=== PATIENT | male | born 1940 | race Caucasian/White ===

== ENCOUNTER 2019-11-12 08:12 | Outpatient (CLI) | payer MEDICARE, OTHER, SELFPAY ==
--- NOTE | 2019-11-12 08:21 | XR_ITS ---
WS: [id number] XR ribs RT 2V* [id number] REASON FOR EXAM: RIB PAIN,RIGHTSIDED FINDINGS: A nondisplaced fractures noted through the fifth rib on the right side. The remaining rib cage appear to be essentially normal. There was no pneumothorax or pleural reaction. XR/XR ribs RT 2V* [id number] IMPRESSION: Fracture of the fifth rib through its angle nondisplaced
== END 2019-11-12 08:13 | disposition home or self-care (01) ==
PROVIDERS: Family Provider Family Medicine; PCP Family Medicine; Visit Provider Family Medicine
DX: R07.81 Pleurodynia (principal); S22.31XA Fracture of one rib, right side, initial encounter for closed fracture; X58.XXXA Exposure to other specified factors, initial encounter
CPT/HCPCS: 71100

== ENCOUNTER 2020-02-05 03:47 | Inpatient (IN) | payer MEDICARE, OTHER, SELFPAY ==
[2020-02-05] VITALS (14 sets, daily range): BP systolic 113–174; BP diastolic 63–85; PULSE 56–89; RESP 16–20; TEMP 36.4–37.2; O2SAT 93–98; BMI 19.8
--- NOTE | 2020-02-05 04:11 | XRR_ITS ---
PROCEDURE INFORMATION: Exam: XR Right Femur Exam date and time: 02/05/2020 4:50 AM Age: 79 years old Clinical indication: Injury or trauma; Fall; Initial encounter; Blunt trauma; Hip; Right TECHNIQUE: Imaging protocol: XR Right femur. Views: 2 views. COMPARISON: No relevant prior studies available. FINDINGS: Bones/joints: The femur is intact. Questionable irregularity seen in the lateral condyle of the tibia. Soft tissues: Unremarkable. XR/XR femur RT min 2V* [id number] IMPRESSION: No fracture is seen in the femur. Right knee x-rays are suggested to evaluate the lateral condyle of the tibia.
--- NOTE | 2020-02-05 04:11 | CTR_ITS ---
PROCEDURE INFORMATION: Exam: CT Cervical Spine Without Contrast Exam date and time: 02/05/2020 5:00 AM Age: 79 years old Clinical indication: Injury or trauma; Fall; Initial encounter; Abrasion TECHNIQUE: Imaging protocol: Computed tomography images of the cervical spine without contrast. Radiation optimization: All CT scans at this facility use at least one of these dose optimization techniques: automated exposure control; mA and/or kV adjustment per patient size (includes targeted exams where dose is matched to clinical indication); or iterative reconstruction. COMPARISON: No relevant prior studies available. RADIATION DOSE METRICS: Total DLP (mGy-cm): 549.84 FINDINGS: Vertebrae: No acute fracture. Normal alignment. The disc heights are reduced at C5-C6 and C6-C7 with osteophytes and narrowing of the remove the neural foramina. Soft tissues: Unremarkable. Lungs: Lung apices are normal. CT/CT cervical spin wo con* [id number] IMPRESSION: No acute findings. Negative for fracture or subluxation. Radiation Dose CTDIVOL = (mGy): DLP = 549.84 (mGy-cm)
--- NOTE | 2020-02-05 04:11 | XRR_ITS ---
PROCEDURE INFORMATION: Exam: XR Chest, 1 View Exam date and time: 02/05/2020 4:38 AM Age: 79 years old Clinical indication: Injury or trauma; Fall; Initial encounter; Abrasion TECHNIQUE: Imaging protocol: XR of the chest Views: 1 view. COMPARISON: CR XR ribs RT 2V* [id number] 11/12/2019 8:25 AM FINDINGS: Lungs: A new heterogenous opacity seen in the lateral right upper lobe with adjoining chest wall soft tissue swelling. Pleural space: Unremarkable. No pleural effusion. No pneumothorax. Heart/Mediastinum: Unremarkable. No cardiomegaly. Bones/joints: Unremarkable. XR/XR chest 1V portable [id number] IMPRESSION: Lung contusion in the right upper lobe is suspected along with hematoma in the chest wall. Few infiltrates are seen in the left base. No rib fracture is identified in this single view. Negative for pneumothorax. Follow-up is suggested.
--- NOTE | 2020-02-05 04:11 | CTR_ITS ---
PROCEDURE INFORMATION: Exam: CT Head Without Contrast Exam date and time: 02/05/2020 5:00 AM Age: 79 years old Clinical indication: Injury or trauma; Fall; Initial encounter; Abrasion; Forehead TECHNIQUE: Imaging protocol: Computed tomography of the head without contrast. Radiation optimization: All CT scans at this facility use at least one of these dose optimization techniques: automated exposure control; mA and/or kV adjustment per patient size (includes targeted exams where dose is matched to clinical indication); or iterative reconstruction. COMPARISON: CT head wo con* [id number] 10/06/2015 11:58 PM RADIATION DOSE METRICS: Total DLP (mGy-cm): 1369.05 FINDINGS: Brain: Normal. No hemorrhage. Decreased periventricular white matter attenuation is consistent with microvascular ischemic changes. No mass effect. Ventricles: Prominent ventricles and cisterns are seen consistent with atrophy. Bones/joints: Unremarkable. No acute fracture. Sinuses: Visualized sinuses are unremarkable. No fluid levels. Mastoid air cells: Visualized mastoid air cells are well aerated. Soft tissues: Unremarkable. CT/CT head wo con* [id number] IMPRESSION: No acute intracranial abnormality. Radiation Dose CTDIVOL = (mGy): DLP = 1369.05 (mGy-cm)
--- NOTE | 2020-02-05 04:12 | ECG_ITS ---
[facility] Test Date: 2020-02-05 Pat Name: Jaya Angel Department: Room: Gender: Male Cook Starch: : 1940 Requested By: Carlos Doherty Order Number: [id number] Neo MD: Mendy Ely M.D. Measurements Intervals [place] Rate: 67 P: 57 [place]: 153 QRS: 15 QRSD: 93 T: 18 QT: 385 QTc: 409 Interpretive Statements SINUS RHYTHM WITH OCCASIONAL VENTRICULAR PREMATURE COMPLEXES WITH OCCASIONAL SUPRAVENTRICULAR PREMATURE COMPLEXES No previous ECG available for comparison Electronically Signed On 02-05-2020 20:51:23 CDT by Mendy Ely M.D. [id number]
--- NOTE | 2020-02-05 04:34 | W.ED.FALL ---
HPI - Fall General: Chief Complaint: Fall Stated Complaint: FALL Time Seen by Provider: 02/05/20 03:53 History of Present Illness: HPI Narrative: 79-year-old male with a history of dementia. He was found around 2 AM at the base of the stairs in the garage. There is about a 6 stairs landing without a rail. He has an abrasion to his face, and is complaining of right hip pain. He cannot bear weight on that hip. EMS was called. Patient does not recall how he fell, but thinks he may have fallen around midnight. MD complaint: fall Onset (ago): hour(s) Fall from: from height (distance) and down stairs (#) Fall witnessed: no Place fall occurred: home Loss of consciousness: Unsure Prolonged down time: unclear Symptoms prior to fall: none Location of injury: head and face Location of injury - extremities: Right: thigh Associated symptoms-after fall: Denies abdominal pain, chest pain, headache(s), hematuria, neck pain or short of breath Review of Systems Const: Denies: fever(s) or chills Eyes: Denies: change in vision or blurry vision ENMT: Denies: swelling of lips/tongue, dental pain, change in hearing, epistaxis, post nasal drip or sinus pain Card: Denies: chest pain Resp: Denies: dyspnea, productive cough, non-productive cough or wheezing GI: Denies: abdominal pain : Denies: difficulty urinating or hematuria Musc: Denies: neck pain or back pain Neuro: Denies: headache(s) Psych: Denies: anxiety Physical Exam Const: GENERAL APPEARANCE: well developed ORIENTATION/CONSCIOUSNESS: Yes oriented to person and Yes oriented to place; not oriented to time HENMT: COMMON NORMALS: normocephalic, external ears normal and Normal external nose present HEAD & SCALP: normocephalic FACE & SINUS: normal facial exam NOSE: Normal external nose present and No nasal discharge present EXTERNAL EAR: Yes external ears normal THROAT: posterior oropharynx normal; no peritonsillar mass Eye: COMMON NORMALS: Equal, round and reactive pupils present, EOMs intact bilaterally and conjunctivae normal EYELID: eyelids normal CONJUNCTIVA: Yes conjunctivae normal PUPIL: Yes Equal, round and reactive pupils present Neck/C-Spine: COMMON NORMALS: full ROM GENERAL: No tracheal deviation CERVICAL SPINE: Yes normal cervical lordosis and No Cervical spine tenderness Chest: COMMONS NORMALS: normal inspection of the chest CHEST: No tenderness Resp: COMMON NORMALS: clear to auscultation bilaterally EFFORT & INSPECTION: No tachypneic, No respiratory distress, No retractions, No uses accessory muscles and No tracheal deviation AUSCULTATION: clear to auscultation bilaterally, no rhonchi, no wheezes and lung sounds not diminished Cardio: COMMON NORMALS: regular rate and regular rhythm RATE: regular rate RHYTHM: regular rhythm HEART SOUNDS: no murmurs PERIPHERAL PULSES: radial pulses present GI: INSPECTION: No abdominal distension AUSCULTATION: No Hyperactive bowel sounds present and No Hypoactive bowel sounds present PALPATION: No Guarding due to palpation present (GI) and No Rigid due to palpation PERCUSSION: no dullness to percussion and no tympanic to percussion Extremity: NARRATIVE EXTREMITY EXAM: Examination of the right lower extremity reveals no deformity. There is tenderness over the anterior right hip. There is pain with flexion. There is pain with internal rotation. Neuro: SENSORIUM/ORIENTATION: Yes oriented to person, Yes oriented to place and No oriented to time Psych: COMMON NORMALS: mental status grossly normal Skin: COMMON NORMALS: no rashes or lesions noted GENERAL SKIN EXAM: no rashes or lesions noted Course Consultations: Consultation #1: schuyler Time: 06:12 Consultation #2: tsering Time: 06:23 Vital Signs: Vital signs: Vital Signs Temperature 97.6 F 02/05/20 03:49 Pulse Rate 77 02/05/20 03:49 Respiratory Rate 16 02/05/20 04:47 Blood Pressure 142/78 02/05/20 03:49 Pulse Oximetry 94 02/05/20 03:49 MDM - Fall Lab Data: Labs: Lab Results 02/05/20 02/05/20 02/05/20 Range/Units 04:16 04:16 04:16 WBC 12.8 H (4.0-10.0) 10^3/ uL RBC 4.56 (4.1-5.3) 10^6/u L Hgb 13.8 (11.7-16.6) g/dL Hct 46.3 (42.0-52.0) % MCV 101.5 H (80-94) fL MCH 30.3 (28.0-34.0) pg MCHC 29.8 L (30.0-36.0) g/dL RDW 14.6 (12.1-15.1) % Plt Count 224 (130-400) 10^3/c mm MPV 9.5 (7.4-10.4) fL Neut % (Auto) 89.7 % Lymph % (Auto) 2.3 % Beadle % (Auto) 6.6 % Eos % (Auto) 0.0 % Baso % (Auto) 0.4 % Neut # (Auto) 11.46 H (1.8-7.7) 10^3/u L Lymph # (Auto) 0.3 L (0.8-4.8) 10^3/u L Beadle # (Auto) 0.8 (0.2-0.9) 10^3/u L Eos # (Auto) 0.0 (0.0-0.8) 10^3/u L Baso # (Auto) 0.1 (0.0-0.1) 10^3/u L Nucleated RBC % (a uto) 0 % Nucleated RBCs # 0.0 /100WBC Sodium 135 L (136-145) mmol/L Potassium 4.0 (3.5-5.1) mmol/L Chloride 99 (98-107) mmol/L Carbon Dioxide 25 (22-29) mmol/L Anion Gap 15.0 (5-19) BUN 19 (8-23) mg/dL Creatinine 0.8 (0.7-1.2) mg/dL GFR Calculation Not Reportable Glucose 109 (65-115) mg/dL Calculated Osmolal ity 277 L (285-295) mOsm/k g Calcium 9.2 (8.5-10.5) mg/dL Total Bilirubin 1.4 H (0.15-1.2) mg/dL AST 62 H (0-40) U/L ALT 49 H (0-41) U/L Alkaline Phosphata se 247 H (40-130) IU/L Creatine Kinase 39 (39-308) U/L Troponin T Baselin e 34 H (0-15) ng/L Total Protein 6.1 L (6.6-8.7) g/dL Albumin 2.8 L (3.5-5.2) g/dL Globulin 3.3 (1.3-4.6) g/dL Coding Level of Care Code ED Word Processor Operator for Chg Fwd Exam Comprehensive
[2020-02-05] MEDS: sodium chloride 0.9% 1,000 ML 999 ML IV (04:35)
[2020-02-05 04:37] LABS: Basophils # 0.1 10^3/uL (0.0-0.1); Basophils % 0.4 %; Hematocrit 46.3 % (42.0-52.0); Hemoglobin 13.8 g/dL (11.7-16.6); Lymphocytes # 0.3 10^3/uL (0.8-4.8); Lymphocytes % 2.3 %; Mean Corpuscular HGB Conc 29.8 g/dL (30.0-36.0); Mean Corpuscular Hemoglobin 30.3 pg (28.0-34.0); Mean Corpuscular Volume 101.5 fL (80-94); Mean Platelet Volume 9.5 fL (7.4-10.4); Monocytes # 0.8 10^3/uL (0.2-0.9); Monocytes % 6.6 %; Neutrophils # 11.46 10^3/uL (1.8-7.7); Neutrophils % 89.7 %; Nucleated Red Blood Cells % 0 %; Platelet Count 224 10^3/cmm (130-400); Red Blood Count 4.56 10^6/uL (4.1-5.3); Red Cell Distribution Width 14.6 % (12.1-15.1); White Blood Count 12.8 10^3/uL (4.0-10.0)
[2020-02-05] MEDS: fentaNYL 50 mcg/mL INJ 2mL 75 MCG IVP (04:47)
--- NOTE | 2020-02-05 04:52 | CTR_ITS ---
PROCEDURE INFORMATION: Exam: CT Pelvis Without Contrast; Skeletal Exam date and time: 02/05/2020 5:00 AM Age: 79 years old Clinical indication: Injury or trauma; Fall; Initial encounter; Blunt trauma (contusions or hematomas); Right; Hip TECHNIQUE: Imaging protocol: Computed tomography images of the pelvis without contrast. Exam focused on the skeletal structures. Radiation optimization: All CT scans at this facility use at least one of these dose optimization techniques: automated exposure control; mA and/or kV adjustment per patient size (includes targeted exams where dose is matched to clinical indication); or iterative reconstruction. COMPARISON: No relevant prior studies available. RADIATION DOSE METRICS: Total DLP (mGy-cm): 272.45 FINDINGS: Bones/joints: An undisplaced a comminuted fracture of the right acetabulum is present. No dislocation. Soft tissues: Prostatomegaly is seen. Noninflamed diverticuli are present in the sigmoid colon. Mild ectasia of the abdominal aorta is seen measuring up to 2.5 cm. Questionable tiny amount of fluid is seen in the right paracolic gutter. CT/CT pelvis [facility] [id number] IMPRESSION: 1. Fracture of the right acetabulum is present. 2. Additional findings as described. Radiation Dose CTDIVOL = (mGy): DLP = 272.45 (mGy-cm)
[2020-02-05 04:58] LABS: Alanine Aminotransferase 49 U/L (0-41); Albumin Level 2.8 g/dL (3.5-5.2); Alkaline Phosphatase 247 IU/L (40-130); Aspartate Amino Transferase 62 U/L (0-40); Blood Urea Nitrogen 19 mg/dL (8-23); Calcium 9.2 mg/dL (8.5-10.5); Carbon Dioxide 25 mmol/L (22-29); Chloride 99 mmol/L (98-107); Creatine Phosphokinase 39 U/L (39-308); Globulin 3.3 g/dL (1.3-4.6); Glucose 109 mg/dL (65-115); Osmolality Calculated 277 mOsm/kg (285-295); Sodium 135 mmol/L (136-145); Total Bilirubin 1.4 mg/dL (0.15-1.2); Total Protein 6.1 g/dL (6.6-8.7)
[2020-02-05 04:59] LABS: Troponin(5th) Baseline 34 ng/L (0-15)
--- NOTE | 2020-02-05 06:12 | ECG_ITS ---
[facility] Test Date: 2020-02-05 Pat Name: Jaya Angel Department: Room: Gender: Male Drink Waiter: : 1940 Requested By: Carlos Doherty Order Number: [id number] Neo MD: Mendy Ely M.D. Measurements Intervals [place] Rate: 79 P: 49 VT: 150 QRS: 16 QRSD: 94 T: 13 QT: 378 QTc: 434 Interpretive Statements SINUS RHYTHM VOLTAGE CRITERIA FOR LVH [MEETS CRITERIA IN ONE OF: R(aVL), S(V1), R(V5), R(V5/V6)+S(V1)] Compared to ECG 02/05/2020 04:25:21 Left ventricular hypertrophy now present Ventricular premature complex(es) no longer present Electronically Signed On 02-07-2020 0:21:10 CDT by Mendy Ely M.D. [id number]
--- NOTE | 2020-02-05 06:23 | W.ED.FALL ---
HPI - Fall General: Chief Complaint: Fall Stated Complaint: FALL Time Seen by Provider: 02/05/20 03:53 History of Present Illness: HPI Narrative: 79-year-old male who fell at home off of a stair platform in his garage. About 4-6 stairs high. He landed on his right side. He was down likely for a couple of hours. He could not bear weight on the right side, so EMS was called. complaint: fall Onset (ago): hour(s) Place fall occurred: home Associated symptoms-after fall: Reports confusion; Denies abdominal pain, chest pain, headache(s), hematuria, neck pain or vertigo Review of Systems Const: Denies: fever(s) or chills Eyes: Denies: change in vision or blurry vision ENMT: Denies: bleeding gums, epistaxis, post nasal drip or sinus pain Card: Denies: chest pain, palpitations, irregular heart rhythm or swelling of feet/ankles Resp: Denies: dyspnea, productive cough, non-productive cough or wheezing GI: Denies: abdominal pain, nausea or vomiting : Denies: difficulty urinating or hematuria Musc: Denies: neck pain or back pain Skin/Breast: Denies: rash or erythema Neuro: Reports: confusion; Denies: headache(s), dizziness or vertigo Psych: Denies: anxiety PFSH ED PFSH: Medical History (Updated 02/05/20 @ 19:08 by Cralos Daniels DO) BPH (benign prostatic hyperplasia) Senile dementia Surgical History (Updated 02/05/20 @ 07:01 by Gray Han MD) H/O carpal tunnel repair History of appendectomy Family History (Updated 02/05/20 @ 07:02 by Gray Han MD) Other No significant family history Social History (Updated 02/05/20 @ 07:02 by Gray Han MD) Smoking and tobacco status: never smoked Alcohol intake: never Substance/Drug Use: never Household members: spouse Housing: House Physical Exam Const: GENERAL APPEARANCE: well developed ORIENTATION/CONSCIOUSNESS: Yes oriented to person and Yes oriented to place; not oriented to time HENMT: COMMON NORMALS: normocephalic, external ears normal and Normal external nose present HEAD & SCALP: normocephalic; no scalp tenderness FACE & SINUS: normal facial exam NOSE: Normal external nose present and No nasal discharge present EXTERNAL EAR: Yes external ears normal MOUTH: tongue normal Eye: COMMON NORMALS: Equal, round and reactive pupils present, EOMs intact bilaterally and conjunctivae normal EYELID: eyelids normal CONJUNCTIVA: Yes conjunctivae normal PUPIL: Yes Equal, round and reactive pupils present Neck/C-Spine: COMMON NORMALS: full ROM GENERAL: No tracheal deviation CERVICAL SPINE: Yes normal cervical lordosis and No Cervical spine tenderness Chest: COMMONS NORMALS: normal inspection of the chest CHEST: No tenderness Resp: COMMON NORMALS: clear to auscultation bilaterally EFFORT & INSPECTION: No tachypneic, No respiratory distress, No retractions, No uses accessory muscles and No tracheal deviation AUSCULTATION: clear to auscultation bilaterally, no rhonchi, no wheezes and lung sounds not diminished Cardio: COMMON NORMALS: regular rate and regular rhythm RATE: regular rate RHYTHM: regular rhythm HEART SOUNDS: no murmurs PERIPHERAL PULSES: radial pulses present GI: INSPECTION: No abdominal distension AUSCULTATION: No Hyperactive bowel sounds present and No Hypoactive bowel sounds present PALPATION: No Guarding due to palpation present (GI) and No Rigid due to palpation PERCUSSION: no dullness to percussion and no tympanic to percussion Extremity: NARRATIVE EXTREMITY EXAM: Right hip tenderness anteriorly and laterally. There is pain with logroll testing. There is pain with passive flexion. Neuro: SENSORIUM/ORIENTATION: Yes oriented to person, Yes oriented to place and No oriented to time Course Consultations: Consultation #1: schuyler Consultation #2: tsering Vital Signs: Vital signs: Vital Signs Temperature 99.0 F 02/05/20 16:00 Pulse Rate 64 02/05/20 16:50 Respiratory Rate 17 02/05/20 18:00 Blood Pressure 137/68 02/05/20 16:00 Pulse Oximetry 94 02/05/20 16:45 MDM - Fall MDM Narrative: Medical decision making narrative: 79-year-old man who fell at home. His vitals have been stable. His white count is 12.8. His other labs are benign, save liver enzymes which are mildly elevated including a bilirubin of 1.4. His alk phos is significantly elevated. His chest x-ray shows what looks like a soft tissue density over the scapula, but this is nontender. CT of the pelvis shows a nondisplaced acetabulum fracture. There is no evidence of hemorrhage in the pelvis. He is nontender in the right upper quadrant or in any other quadrant of the belly. Head and cervical spine CTs are clear. He obviously cannot bear weight with the acetabulum fracture. Orthopedics was consulted. Patient to be admitted. Lab Data: Labs: Lab Results 02/05/20 02/05/20 02/05/20 Range/Units 04:16 04:16 04:16 WBC 12.8 H (4.0-10.0) 10^3/ uL RBC 4.56 (4.1-5.3) 10^6/u L Hgb 13.8 (11.7-16.6) g/dL Hct 46.3 (42.0-52.0) % MCV 101.5 H (80-94) fL MCH 30.3 (28.0-34.0) pg MCHC 29.8 L (30.0-36.0) g/dL RDW 14.6 (12.1-15.1) % Plt Count 224 (130-400) 10^3/c mm MPV 9.5 (7.4-10.4) fL Neut % (Auto) 89.7 % Lymph % (Auto) 2.3 % Perkins % (Auto) 6.6 % Eos % (Auto) 0.0 % Baso % (Auto) 0.4 % Neut # (Auto) 11.46 H (1.8-7.7) 10^3/u L Lymph # (Auto) 0.3 L (0.8-4.8) 10^3/u L Perkins # (Auto) 0.8 (0.2-0.9) 10^3/u L Eos # (Auto) 0.0 (0.0-0.8) 10^3/u L Baso # (Auto) 0.1 (0.0-0.1) 10^3/u L Nucleated RBC % (a uto) 0 % Nucleated RBCs # 0.0 /100WBC Sodium 135 L (136-145) mmol/L Potassium 4.0 (3.5-5.1) mmol/L Chloride 99 (98-107) mmol/L Carbon Dioxide 25 (22-29) mmol/L Anion Gap 15.0 (5-19) BUN 19 (8-23) mg/dL Creatinine 0.8 (0.7-1.2) mg/dL GFR Calculation Not Reportable Glucose 109 (65-115) mg/dL Calculated Osmolal ity 277 L (285-295) mOsm/k g Calcium 9.2 (8.5-10.5) mg/dL Total Bilirubin 1.4 H (0.15-1.2) mg/dL AST 62 H (0-40) U/L ALT 49 H (0-41) U/L Alkaline Phosphata se 247 H (40-130) IU/L Creatine Kinase 39 (39-308) U/L Troponin T Baselin e 34 H (0-15) ng/L NT-Pro-B Natriuret Pep (0-450) pg/mL Total Protein 6.1 L (6.6-8.7) g/dL Albumin 2.8 L (3.5-5.2) g/dL Globulin 3.3 (1.3-4.6) g/dL Vitamin B12 (232-1245) pg/mL TSH (0.27-4.20) uIU/ mL Urine Color (Yellow) Urine Appearance (CLEAR) Urine pH (5-7) Ur Specific Gravit y (1.005-1.030) Urine Protein (Negative) Urine Glucose (UA) (Normal) Urine Ketones (Negative) Urine Blood (Negative) Urine Nitrate (Negative) Urine Bilirubin (NEGATIVE) Urine Urobilinogen (Negative) mg/dL Ur Leukocyte Ginette ase (Negative) Urine RBC (0-2) /hpf Urine WBC (0-5) /hpf Ur Squamous Epith Cells (0-5) Amorphous Sediment Urine Bacteria (NONE) 02/05/20 02/05/20 Range/Units 04:16 05:30 WBC (4.0-10.0) 10^3/ uL RBC (4.1-5.3) 10^6/u L Hgb (11.7-16.6) g/dL Hct (42.0-52.0) % MCV (80-94) fL MCH (28.0-34.0) pg MCHC (30.0-36.0) g/dL RDW (12.1-15.1) % Plt Count (130-400) 10^3/c mm MPV (7.4-10.4) fL Neut % (Auto) % Lymph % (Auto) % Perkins % (Auto) % Eos % (Auto) % Baso % (Auto) % Neut # (Auto) (1.8-7.7) 10^3/u L Lymph # (Auto) (0.8-4.8) 10^3/u L Perkins # (Auto) (0.2-0.9) 10^3/u L Eos # (Auto) (0.0-0.8) 10^3/u L Baso # (Auto) (0.0-0.1) 10^3/u L Nucleated RBC % (a uto) % Nucleated RBCs # /100WBC Sodium 137 (136-145) mmol/L Potassium 4.2 (3.5-5.1) mmol/L Chloride 101 (98-107) mmol/L Carbon Dioxide 25 (22-29) mmol/L Anion Gap 15.2 (5-19) BUN 18 (8-23) mg/dL Creatinine 0.7 (0.7-1.2) mg/dL GFR Calculation Not Reportable Glucose 106 (65-115) mg/dL Calculated Osmolal ity 281 L (285-295) mOsm/k g Calcium 8.8 (8.5-10.5) mg/dL Total Bilirubin (0.15-1.2) mg/dL AST (0-40) U/L ALT (0-41) U/L Alkaline Phosphata se (40-130) IU/L Creatine Kinase (39-308) U/L Troponin T Baselin e (0-15) ng/L NT-Pro-B Natriuret Pep 1119 H (0-450) pg/mL Total Protein (6.6-8.7) g/dL Albumin (3.5-5.2) g/dL Globulin (1.3-4.6) g/dL Vitamin B12 > 2000 H (232-1245) pg/mL TSH 1.13 (0.27-4.20) uIU/ mL Urine Color Yellow (Yellow) Urine Appearance Clear (CLEAR) Urine pH 6.5 (5-7) Ur Specific Gravit y 1.020 (1.005-1.030) Urine Protein Neg (Negative) Urine Glucose (UA) Norm (Normal) Urine Ketones Negative (Negative) Urine Blood 2+ H (Negative) Urine Nitrate Negative (Negative) Urine Bilirubin Neg (NEGATIVE) Urine Urobilinogen Norm (Negative) mg/dL Ur Leukocyte Ginette ase Negative (Negative) Urine RBC 0-4 H (0-2) /hpf Urine WBC 0-4 H (0-5) /hpf Ur Squamous Epith Cells None (0-5) Amorphous Sediment Not Reportable Urine Bacteria Trace (NONE) Discharge Plan Discharge Patient Disposition: Admitted As Inpatient Admit Provider: Gray Han Clinical Impression: Right acetabular fracture Qualifiers: Encounter type: initial encounter Sublocation of acetabulum: unspecified portion of acetabulum Fracture type: closed Fracture alignment: nondisplaced Qualified Code(s): S32.401A - Unspecified fracture of right acetabulum, initial encounter for closed fracture Condition: Stable [facility]: [facility]) [Outside] Interventions: ED Discharge Assessment Last Done: 02/05/20 06:43 ED Charges Last Done: 02/05/20 06:43 Discharge Date/Time: 02/05/20 06:52 Coding Level of Care Code ED Senior Network Systems Engineer for Angelg Fwd Exam Comprehensive
--- NOTE | 2020-02-05 06:26 | P.HP_ITS ---
Providers/Chief Complaint Primary Care Provider: Joao Cline MD Chief Complaint: FALL History of Present Illness Jaya Angel is a 79 year old male who carries history of dementia, brought in by his family when he was found laying flat in his garage today. Family is at the bedside who is endorsing that lately he has been more confused, his p.o. intake has been decreased, Dr. Cline has stopped neumanda and continued Aricept for dementia, he has been having incontinence, had a recent fall 2 months ago(sustained right-sided fifth and sixth rib fracture, nondisplaced), shuffling gait. No fever, vomiting, diarrhea has been noticed at home. His p.o. intake has decreased significantly, there is gradual decline in his funct ional status because of change in his gait and recent incontinence. 2 months ago he sustained a fall after losing his balance, it was a witnessed fall, no seizure or syncopal event was noticed. There is no history of PA, coronary disease, CHF, stroke, cancer or hepatitis. Today his went to bed at 10:30 PM, when she woke up around 1:30 AM, Mr. Palacios was not in the bed, he was found in the garage laying on the floor, staircase consists of 6 steps which does not have rails in the garage, he was found at the base of it. He could not bear weight on his right leg, hence family brought him to the ER for further evaluation. Patient is not able to recall any events, diagnostics in the ER revealed a right acetabular fracture, he had right facial laceration, no acute fractures, right sided pulmonary contusion evident on x-ray, no signs of UTI, family is at the bedside. Normal hemodynamics, he saturating well on 2 L nasal cannula. Abnormal transaminases noticed, I have requested hepatitis panel, BNP, however clinically he looks dehydrated. Review of Systems General: Reports: ROS unobtainable due to medical condition (Baseline dementia) Medications/Allergies Allergies Allergy/AdvReac Type Severity Reaction Status Date / Time Penicillins Allergy Unconscious Verified 02/05/20 03:54 Sulfa (Sulfonamide Allergy Unknown Verified 02/05/20 03:54 Antibiotics) PFSH Acute 2 PFSH: Medical History (Updated 02/05/20 @ 07:01 by Gray Han MD) BPH (benign prostatic hyperplasia) Senile dementia Surgical History (Updated 02/05/20 @ 07:01 by Gray Han MD) H/O carpal tunnel repair History of appendectomy Family History (Updated 02/05/20 @ 07:02 by Gray Han MD) Other No significant family history Social History (Updated 02/05/20 @ 07:02 by Gray Han MD) Smoking and tobacco status: never smoked Alcohol intake: never Substance/Drug Use: never Household members: spouse Housing: House Vitals/I&O/Wt Last Vital Signs Temp 97.6 F 02/05/20 03:49 Pulse 77 02/05/20 03:49 Resp 16 02/05/20 04:47 BP 142/78 02/05/20 03:49 Pulse Ox 94 02/05/20 03:49 Weight last 48 hrs Weight 68.039 kg Physical Exam Narrative: EXAM NARRATIVE: elderly male currently laying flat in his bed Not complaining of active pain Right-sided facial laceration noticed, no active bleeding , S1, S2 no murmur appreciated, clinically dehydrated Dried ducal mucous membrane Right costal margin tender to palpation Abdomen soft nontender bowel sound present Lower extremity ankle edema trace bilaterally, right leg is shortened and inward rotated, dorsalis pedis pulses bilaterally palpable Patient has cognitive impairment Memory lapses Data : 02/05/20 04:16 02/05/20 04:16 A&P Assessment and plan (1) Right acetabular fracture: Status: Acute (2) Urinary incontinence: Status: Acute (3) Shuffling gait: Status: Acute (4) Rib fracture: Status: Acute (5) Pulmonary contusion: Status: Acute Additional A&P Information Right acetabular fracture after sustaining a fall at home This is his second fall in the last 3 months, He has been having urinary incontinence, shuffling gait with underlying dementia I would keep normal pressure hydrocephalus in my differentials, follow-up with CT head axial view Check B12 level and TSH Patient is also taking Flomax which can cause orthostatic syncope events as well N.p.o. Analgesia with Dilaudid with bowel regimen senna S Orthopedic consult Dr. Salinas has been updated D5 normal saline fluid resuscitation RCRI class II risk, considering urgent nature of the surgery with declining functional status I would not request perioperative cardiac evaluation, EKG showing normal sinus rhythm with LVH criteria, considering his age and poor functional status he is at high risk of DVT, perioperative complications, family updated Abnormal transaminases Check liver ultrasound to rule out gallbladder etiology Patient has mild leukocytosis, he is afebrile No signs of sepsis Check hepatitis panel, rule out right-sided heart failure, request BNP clinically dehydrated BPH: Hold Flomax, place Min catheter Baseline dementia: No previous history of stroke most likely senile dementia At home he takes Aricept Right-sided rib fracture with primary contusion Monitor for signs of hypoxia I do not appreciate pneumothorax Nondisplaced right-sided fifth and rib fracture, official read is pending Full code DVT prophylaxis: SCDs, postoperatively to be addressed by orthopedic N.p.o. Attestations Medical Necessity Statement*: Anticipating stay in the hospital course more than 2 midnights currently need surgical evaluation for right acetabular fracture Time Spent in Patient Care: (>than 50% of time spent in counselling and/or direct pt care on unit) . 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
[2020-02-05 06:51] LABS: Bilirubin Urine Neg (NEGATIVE); Blood Urine 2+ (Negative); Glucose Urine UA Norm (Normal); Ketones Urine Negative (Negative); Nitrate Urine Negative (Negative); Protein Urine Neg (Negative); Urine Appearance Clear (CLEAR); Urine Color Yellow (Yellow); pH Urine 6.5 (5-7)
[2020-02-05 06:52] LABS: Add Urine Culture? No; Add Urine Microscopic? YES; Bacteria Urine TRACE; Leukocyte Esterase Urine Negative (Negative); RBC Urine 0-4 /hpf (0-2); Urobilinogen Urine Norm (Negative); WBC Urine 0-4 /hpf (0-5)
[2020-02-05 06:57] LABS: Troponin 5 2HR 34.75 ng/L (0-15); Troponin 5 2HR Delta 0.75 ABS# (0-10)
--- NOTE | 2020-02-05 07:38 | PM.PN ---
Subjective Subjective: Interval history: Admitted for right acetabular fracture after a fall Vitals/I&O/Wt Last Vital Signs Temp 98.9 F 02/05/20 07:00 Pulse 75 02/05/20 07:00 Resp 20 H 02/05/20 07:00 BP 174/83 02/05/20 07:00 Pulse Ox 93 02/05/20 07:00 Weight last 48 hrs Weight 150 lb Data : 02/05/20 04:16 02/05/20 04:16 Xray Ortho: My impression: Radiographs incompletely evaluate the fracture. Apparent nondisplaced acetabular fracture but due to obliquity of films difficult to define fracture pattern. CT Abd/Pel: My impression: Nondisplaced right acetabular fracture. Will obtain complete radiographs of pelvis to better define fracture anatomy. 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
--- NOTE | 2020-02-05 07:43 | XRR_ITS ---
PROCEDURE INFORMATION: Exam: XR Pelvis Exam date and time: 02/05/2020 2:40 PM Age: 79 years old Clinical indication: Hip pain and pelvic pain; Bilateral; Additional info: Right acetabular fracture TECHNIQUE: Imaging protocol: XR pelvis. Views: 1 or 2 view. COMPARISON: CT pelvis con [id number] 02/05/2020 5:06 AM FINDINGS: Bones/joints: There is osteopenia. There is a nondisplaced fracture of the medial column right acetabulum. No fracture of the sacrum or left hemipelvis is identified. No acute femur fracture. Moderate to severe degenerative changes in the spine, sacroiliac joints and hip joints are noted. Soft tissues: Unremarkable. XR/XR pelvis min 3V [id number] IMPRESSION: There is a nondisplaced fracture of the medial column right acetabulum.
[2020-02-05] MEDS: dextrose 5%-sod chloride 0.9% 1,000 ML 75 ML IV (08:28)
[2020-02-05] MEDS: cefTRIAXone 1,000 MG in sodium chloride 0.9% (plus) 50 ML 100 MG IV (08:28)
[2020-02-05] MEDS: sennosides-docusate Tablet 1 TAB PO (08:29)
[2020-02-05 08:59] LABS: Hepatitis A Antibody IgM Non-Reactive (Nonreactive); Hepatitis B Core IgM Non-Reactive (Nonreactive); Hepatitis B Surface Antigen Non-Reactive (Nonreactive); Hepatitis C Virus Antibody Non-Reactive (Nonreactive)
--- NOTE | 2020-02-05 09:07 | USR_ITS ---
PROCEDURE INFORMATION: Exam: US Abdomen, Limited; Right Upper Quadrant Exam date and time: 02/05/2020 10:46 AM Age: 79 years old Clinical indication: Abdominal pain; Additional info: Transaminitis TECHNIQUE: Imaging protocol: US abdomen. Real time ultrasound with image documentation. Limited exam focused on the right upper quadrant. COMPARISON: No relevant prior studies available. FINDINGS: Liver: Markedly inhomogeneous hepatic echotexture and multiple nodular lesions, suggesting hematogenous metastases. Gallbladder: Markedly abnormal gallbladder with echogenic bile, cholelithiasis, wall thickening, and pericholecystic fluid. Assessment of a sonographic Guillermo sign was not reported by the scanning technologist. Common bile duct: Dilatation of the incompletely visualized common bile duct measuring 10 mm in diameter. Pancreas: Inhomogeneous echotexture in the pancreas, which is partially obscured by bowel gas. Correlation with pancreatic enzymes is recommended to exclude pancreatitis. Right kidney: Right renal cysts, the largest measuring 2.5 cm. Mildly increased renal parenchymal echotexture. No hydronephrosis. Aorta: 4.8 cm abdominal aortic aneurysm. Inferior vena cava: Unremarkable IVC. Intraperitoneal space: Small quantity of free fluid. US/US liver [id number] IMPRESSION: 1. Markedly inhomogeneous hepatic echotexture and multiple nodular lesions, suggesting hematogenous metastases. 2. Markedly abnormal gallbladder with echogenic bile, cholelithiasis, wall thickening, and pericholecystic fluid. 3. 4.8 cm abdominal aortic aneurysm. 4. Additional findings as described above.
[2020-02-05] MEDS: azithromycin 500 MG in sodium chloride 0.9% 250 ML 250 MG IV (09:38)
--- NOTE | 2020-02-05 10:12 | ECG_ITS ---
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 Measurements Intervals [place] Rate: 66 P: 83 NV: 151 QRS: 2 QRSD: 92 T: 7 QT: 420 QTc: 441 Interpretive Statements SINUS RHYTHM WITH OCCASIONAL SUPRAVENTRICULAR PREMATURE COMPLEXES VOLTAGE CRITERIA FOR LVH [MEETS CRITERIA IN ONE OF: R(aVL), S(V1), R(V5), R(V5/V6)+S(V1)] Compared to ECG 02/05/2020 06:15:41 No significant changes Electronically Signed On 02-07-2020 0:22:29 CDT by Mendy Ely M.D. [email or web address]
[2020-02-05 12:11] LABS: Blood Urea Nitrogen 18 mg/dL (8-23); Calcium 8.8 mg/dL (8.5-10.5); Carbon Dioxide 25 mmol/L (22-29); Chloride 101 mmol/L (98-107); Glucose 106 mg/dL (65-115); NT Pro B Type Natriuretic Pept 1119 pg/mL (0-450); Osmolality Calculated 281 mOsm/kg (285-295); Sodium 137 mmol/L (136-145); Thyroid Stimulating Hormone 1.13 uIU/mL (0.27-4.20)
[2020-02-05 12:23] LABS: Anion Gap 15.2 (5-19); Potassium 4.2 mmol/L (3.5-5.1); Vitamin B12 > 2000 pg/mL (232-1245)
--- NOTE | 2020-02-05 13:59 | P.PN_ITS ---
Subjective Subjective: Interval history: Patient is quite confused this morning, not sure if this is baseline, does have a history of advanced dementia, he has no significant complaints, does follow commands at times, does not have any particular pain complaints, blood pressure 1 3573, pulse 80-90, temp 98.3, is on 1 to 2 L nasal cannula Vitals/I&O/Wt Last Vital Signs Temp 98.3 F 02/05/20 12:00 Pulse 89 02/05/20 13:53 Resp 16 02/05/20 12:00 BP 135/73 02/05/20 12:00 Pulse Ox 94 02/05/20 13:53 02/04/20 02/05/20 02/05/20 22:59 06:59 14:59 Intake Total 50 / 50 Output Total 360 / 360 Balance -310 / -310 Weight last 48 hrs Weight 68.039 kg Physical Exam Const: COMMON NORMALS: no acute distress GENERAL APPEARANCE: cooperative ORIENTATION/CONSCIOUSNESS: Yes awake and Yes oriented to person; not oriented to place and not oriented to time HENMT: COMMON NORMALS: normocephalic HEAD & SCALP: normocephalic Neck/C-Spine: COMMON NORMALS: no JVD Resp: COMMON NORMALS: normal respiratory effort, No retractions, No use of accessory muscles and clear to auscultation bilaterally AUSCULTATION: clear to auscultation bilaterally Cardio: COMMON NORMALS: no JVD, regular rate, regular rhythm, S1 normal heart sound present and S2 normal heart sound present RATE: regular rate RHYTHM: regular rhythm HEART SOUNDS: S1 normal heart sound present and S2 normal heart sound present GI: COMMON NORMALS: Normal to inspection, nondistended, normoactive bowel so unds present, Soft to palpation, non-tender, No hepatosplenomegaly present, no masses and no bruits PALPATION: Yes Soft to palpation and Yes No hepatosplenomegaly present Extremity: COMMON NORMALS: capillary refill normal, no clubbing, cyanosis or edema, no calf tenderness and no pedal edema Neuro: SENSORIUM/ORIENTATION: Yes oriented to person, No oriented to place and No oriented to time Psych: ATTITUDE: Yes calm SPEECH: Yes minimal THOUGHT PROCESS: incoherent ATTENTION/CONCENTRATION: Yes concentration grossly impaired MEMORY/COGNITION: Yes memory grossly impaired Urinary Catheter Management^: Min: Cath Placed During This Visit: yes Reason for Continuing Indwelling Catheter: Required Immobilization for Trauma or Surgery or Anesthesia Urinary Catheter Date of Insertion: 02/05/20 Urinary Catheter Time of Insertion: 08:51 Data : 02/05/20 04:16 02/05/20 04:16 Micro: Microbiology 02/05/20 10:26 Bacterial Antigens - Final Urine,Clean Catch 02/05/20 10:26 Legionella Urinary Antigen - Final Urine,Clean Catch A&P Assessment and plan (1) Right acetabular fracture: -Status post fall -Pain control with morphine -Orthopedics has been consulted -Continue IV hydration Status: Acute (2) Urinary incontinence: Status: Acute (3) Shuffling gait: Status: Acute (4) Pulmonary contusion: -Monitor respiratory status closely, incentive spirometer Status: Acute (5) Aspiration pneumonia: -Likely secondary to fall, being on the floor for long period of time -Chest x-ray shows infiltrates on left lung base -Continue Rocephin and azithromycin Status: Acute (6) Transaminitis: -We will do a right upper quadrant ultrasound Status: Acute Additional A&P Information RCRI class II risk, considering urgent nature of the surgery with declining functional status I would not request perioperative cardiac evaluation, EKG showing normal sinus rhythm with LVH criteria, considering his age and poor functional status he is at high risk of DVT, perioperative complications, family updated Abnormal transaminases Check liver ultrasound to rule out gallbladder etiology Patient has mild leukocytosis, he is afebrile No signs of sepsis Check hepatitis panel, rule out right-sided heart failure, request BNP clinically dehydrated BPH: Hold Flomax, place Min catheter Baseline dementia: No previous history of stroke most likely senile dementia At home he takes Aricept Right-sided rib fracture with primary contusion Monitor for signs of hypoxia I do not appreciate pneumothorax Full code DVT prophylaxis: SCDs, postoperatively to be addressed by orthopedic N.p.o. 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
--- NOTE | 2020-02-05 14:03 | CTR_ITS ---
PROCEDURE INFORMATION: Exam: CT Abdomen And Pelvis With Contrast Exam date and time: 02/05/2020 3:18 PM Age: 79 years old Clinical indication: Injury or trauma; Initial encounter; Blunt; Generalized; Prior surgery; Surgery date: 6+ months; Surgery type: Appy; Patient HX: Fall last night - abn u/s - R hip pain; Additional info: Cholecstitis? Liver mets TECHNIQUE: Imaging protocol: Computed tomography of the abdomen and pelvis with intravenous contrast. Radiation optimization: All CT scans at this facility use at least one of these dose optimization techniques: automated exposure control; mA and/or kV adjustment per patient size (includes targeted exams where dose is matched to clinical indication); or iterative reconstruction. Contrast material: OMNI 300; Contrast volume: 95 ml; Contrast route: INTRAVENOUS (IV); COMPARISON: CT pelvis wo con [id number] 02/05/2020 5:06 AM RADIATION DOSE METRICS: Total DLP (mGy-cm): 407.4 FINDINGS: Tubes, catheters and devices: A balloon bladder catheter is present. Lungs: Nonspecific bibasilar consolidation is present, consistent with atelectasis, edema, or pneumonia. There is subtle hypodensity in several lower lobe pulmonary artery branches such is the left lower lobe image 1 and right lower lobe image 3 concerning for pulmonary emboli. Heart: The heart is enlarged. Mediastinal space: A small hiatal hernia is present. Liver: Multiple masses are noted in the liver compatible with metastatic disease with a large poorly defined confluent mass in the posterior inferior right lobe of the liver measuring about 10.0 x 6.4 cm in size image 29. Gallbladder and bile ducts: Multiple calcified gallstones are present. The gallbladder wall is thickened and edematous but the appearance is nonspecific in the presence of ascites. Cholecystitis cannot be excluded. There is no common bile duct dilation. Pancreas: Normal. No ductal dilation. Spleen: Normal. No splenomegaly. Adrenals: Normal. No mass. Kidneys and ureters: There are multiple renal hypodensities that cannot be further characterized on the current examination. There are renal cortical hypodensities measuring over 1 cm in size which have fluid density Hounsfield unit measurements compatible with cysts. There is no evidence of renal calcifications. Stomach and bowel: Extensive diverticulosis is present in the distal colon. There is no evidence of colitis/diverticulitis. There is no evidence of intestinal perforation or obstruction. Appendix: A normal appendix is identified. Intraperitoneal space: There is a small amount of ascites and Siomara hepatic fluid. Vasculature: There is 4.3 x 4.1 cm aneurysmal dilatation of the distal abdominal aorta. No dissection or leaking aortic aneurysm. Subtle hypodensity is noted in the right femoral vein compared to the left that may reflect incidental right DVT image 80. Lymph nodes: Unremarkable.No enlarged lymph nodes. Bladder: There is nonspecific bladder wall thickening. This may be related to incomplete distention however cystitis cannot be excluded especially since it appears may be a few air bubbles within the urinary bladder wall image 76. Reproductive: The prostate demonstrates marked nonspecific enlargement. The seminal vesicles are normal. Bones/joints: There is osteopenia with moderate degenerative changes in the spine. No acute bony abnormality. Chronic compression fracture deformity of T12 is noted. Soft tissues: There is diffuse induration of the subcutaneous fat and mesenteric fat compatible with anasarca type changes. CT/CT abdomen pelvis w con* [id number] IMPRESSION: 1. Nonspecific bibasilar consolidation is present, consistent with atelectasis, edema, or pneumonia. 2. Small subocclusive filling defects in lower lobe pulmonary artery branches may reflect incidental pulmonary emboli. CT angiogram chest may be helpful for further evaluation. 3. The gallbladder wall is thickened and edematous but the appearance is nonspecific in the presence of ascites. Cholecystitis cannot be excluded. 4. There is a small amount of ascites and perihepatic fluid. Multiple liver masses are identified compatible with probable metastatic disease. 5. Fluid density renal cortical cysts. This includes several peripelvic cysts. No follow-up is necessary. 6. 4.3 cm aneurysmal dilatation of the distal abdominal aorta. No dissection or leak. 7. There is diffuse induration of the subcutaneous fat and mesenteric fat compatible with anasarca type changes. 8. Thick-walled collapsed urinary bladder may simply reflect lack of distention but it appears may be a few air bubbles within the bladder wall that may reflect emphysematous cystitis. 9. Subtle hypodensity is noted in the right femoral vein compared to the left that may reflect incidental right DVT image 80. Ultrasound may be helpful for further evaluation. Radiation Dose CTDIVOL = (mGy): DLP = 407.4 (mGy-cm)
[2020-02-05] MEDS: OLANZapine 5 mg TABLET PO (14:05)
[2020-02-05] MEDS: iohexol 300 mg/mL 100 mL Btl IV (15:34)
[2020-02-05 15:39] LABS: Procalcitonin 0.39 ng/mL (0-0.5)
[2020-02-05 15:51] LABS: Alanine Aminotransferase 40 U/L (0-41); Albumin Level 2.5 g/dL (3.5-5.2); Alkaline Phosphatase 219 IU/L (40-130); Aspartate Amino Transferase 51 U/L (0-40); Blood Urea Nitrogen 16 mg/dL (8-23); C Reactive Protein 59.2 mg/L (0.0-4.9); Calcium 8.4 mg/dL (8.5-10.5); Carbon Dioxide 27 mmol/L (22-29); Chloride 101 mmol/L (98-107); Gamma Glutamyl Transferase 143 U/L (8-61); Globulin 2.9 g/dL (1.3-4.6); Glucose 107 mg/dL (65-115); Lipase 13 U/L (13-60); Osmolality Calculated 279 mOsm/kg (285-295); Sodium 136 mmol/L (136-145); Total Protein 5.4 g/dL (6.6-8.7)
[2020-02-05] MEDS: ipratropium-albuterol 3 mL Neb INHALATION ×2 (16:42→21:02)
[2020-02-05] MEDS: morphine 4 mg/mL SDV 1 mL 2 MG IVP (18:00)
[2020-02-05] MEDS: enoxaparin 80 mg/0.8 mL Syringe 70 MG SUBCUT (18:02)
[2020-02-06] VITALS (16 sets, daily range): BP systolic 114–146; BP diastolic 69–75; PULSE 69–98; RESP 16–20; TEMP 36.7–37.2; O2SAT 88–97
[2020-02-06] MEDS: morphine 4 mg/mL SDV 1 mL 2 MG IVP ×3 (00:22→20:50)
[2020-02-06] MEDS: dextrose 5%-sod chloride 0.9% 1,000 ML 75 ML IV (04:12)
[2020-02-06] MEDS: enoxaparin 80 mg/0.8 mL Syringe 70 MG SUBCUT (05:12)
--- NOTE | 2020-02-06 05:41 | PC.NURSE ---
SHIFT SUMMARY Has done well tonight with 1:1 sitter at bedside. Occ takes O2 off and has to be replaced and did some picking at IV otherwise just quite confused. Cooperative. Does desat into 80's on RA. Medicated X1 with IV Morphine for pain. Had become restless and obvious discomfort. Does not let nurses reposition him due to pain upon movement. IV infusing without difficulty. Receiving IV antibiotics. Very minute amt of po taken. Min output 600mll urine this shift.
[2020-02-06] MEDS: OLANZapine 5 mg TABLET PO (09:19)
[2020-02-06] MEDS: sennosides-docusate Tablet 1 TAB PO (09:19)
[2020-02-06] MEDS: ipratropium-albuterol 3 mL Neb INHALATION ×4 (09:30→19:30)
[2020-02-06 10:44] LABS: Alanine Aminotransferase 33 U/L (0-41); Albumin Level 2.5 g/dL (3.5-5.2); Alkaline Phosphatase 197 IU/L (40-130); Aspartate Amino Transferase 43 U/L (0-40); Blood Urea Nitrogen 15 mg/dL (8-23); Calcium 8.1 mg/dL (8.5-10.5); Carbon Dioxide 27 mmol/L (22-29); Chloride 103 mmol/L (98-107); Globulin 2.6 g/dL (1.3-4.6); Glucose 167 mg/dL (65-115); Osmolality Calculated 282 mOsm/kg (285-295); Sodium 136 mmol/L (136-145); Total Bilirubin 0.7 mg/dL (0.15-1.2); Total Protein 5.1 g/dL (6.6-8.7)
--- NOTE | 2020-02-06 12:55 | P.PN_ITS ---
Subjective Subjective: Interval history: This morning patient was examined, he is alert oriented x1, no fevers overnight, no pain complaints, has poor oral intake Vitals/I&O/Wt Last Vital Signs Temp 99.0 F 02/06/20 11:18 Pulse 80 02/06/20 12:15 Resp 16 02/06/20 12:07 BP 135/69 02/06/20 11:18 Pulse Ox 96 02/06/20 12:07 02/05/20 02/06/20 02/06/20 22:59 06:59 14:59 Intake Total 1100 / 1150 260 / 1410 120 / 120 Output Total 200 / 710 600 / 1310 Balance 900 / 440 -340 / 100 120 / 120 Weight last 48 hrs Weight 68.039 kg Physical Exam Const: COMMON NORMALS: no acute distress ORIENTATION/CONSCIOUSNESS: Yes awake and Yes oriented to person; not oriented to place and not oriented to time Neuro: SENSORIUM/ORIENTATION: Yes oriented to person, No oriented to place and No oriented to time Urinary Catheter Management^: Min: Cath Placed During This Visit: yes Reason for Continuing Indwelling Catheter: Required Immobilization for Trauma or Surgery or Anesthesia Urinary Catheter Date of Insertion: 02/05/20 Urinary Catheter Time of Insertion: 08:51 Data : 02/05/20 04:16 02/06/20 10:18 Micro: Microbiology 02/05/20 10:26 Bacterial Antigens - Final Urine,Clean Catch 02/05/20 10:26 Legionella Urinary Antigen - Final Urine,Clean Catch A&P Assessment and plan (1) Liver metastases: -Ct abdomen shows Multiple masses are noted in the liver compatible with metastatic disease with a large poorly defined confluent mass in the posterior inferior right lobe of the liver measuring about 10.0 x 6.4 cm in size image 29. -Primary is unknown, will do CT of the chest today -I discussed with the patient's at bedside, does not want any further work- up besides CT of the chest, does not want biopsy, wants to proceed with hospice, advised risks and benefits, voiced understanding, all questions answered -Patient has severe dementia, next of kin of his is his Status: Acute (2) Pulmonary embolism: -Seen on CT of the abdomen, will do a dedicated CT of the chest today, continue therapeutic Lovenox Status: Acute (3) Acute cholecystitis: -Continue Primaxin for acute cholecystitis, Status: Acute (4) Right acetabular fracture: -Status post fall -Pain control with morphine -Orthopedics has been consulted -Continue IV hydration Status: Acute Qualifiers: Encounter type: initial encounter Fracture alignment: nondisplaced Fracture type: closed Sublocation of acetabulum: unspecified portion of acetabulum Qualified Code(s): S32.401A - Unspecified fracture of right acetabulum, initial encounter for closed fracture (5) Urinary incontinence: Status: Acute (6) Shuffling gait: Status: Acute (7) Pulmonary contusion: -Monitor respiratory status closely, incentive spirometer Status: Acute (8) Aspiration pneumonia: -Likely secondary to fall, being on the floor for long period of time -Chest x-ray shows infiltrates on left lung base -Continue Primaxin Status: Acute (9) Transaminitis: -We will do a right upper quadrant ultrasound Status: Acute Additional A&P Information BPH: Hold Flomax, place Min catheter Baseline dementia: No previous history of stroke most likely senile dementia At home he takes Aricept Right-sided rib fracture with primary contusion Monitor for signs of hypoxia I do not appreciate pneumothorax Full code DVT prophylaxis: SCDs, postoperatively to be addressed by orthopedic N.p.o. 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
[2020-02-06] MEDS: iohexol 350 mg/mL 100 mL Btl IV (14:22)
[2020-02-06] MEDS: haloperidol inj 5 mg/mL INJ 1 mL 2 MG IVP (16:03)
--- NOTE | 2020-02-06 16:52 | CTR_ITS ---
PROCEDURE INFORMATION: Exam: CT Angiography Chest With Contrast Exam date and time: 02/06/2020 2:04 PM Age: 79 years old Clinical indication: Shortness of breath; Additional info: Pe TECHNIQUE: Imaging protocol: Computed tomographic angiography of the chest with intravenous contrast. 3D rendering (Not supervised by radiologist): MIP and/or 3D reconstructed images were created by the technologist. Radiation optimization: All CT scans at this facility use at least one of these dose optimization techniques: automated exposure control; mA and/or kV adjustment per patient size (includes targeted exams where dose is matched to clinical indication); or iterative reconstruction. Contrast material: OMNI 350; Contrast volume: 95 ml; Contrast route: INTRAVENOUS (IV); COMPARISON: CR XR chest 1V portable [id number] 02/05/2020 4:27 AM RADIATION DOSE METRICS: Total DLP (mGy-cm): 571.79 FINDINGS: Pulmonary arteries: Bilateral pulmonary emboli most prominent in the right lower division. No saddle embolism extending across the main pulmonary arteries. Many of the thrombi are partially retracted from the pulmonary arterial wall Aorta: Minimal dilatation of the ascending thoracic aorta, approximately 4.2 cm, no dissection. Lungs: Irregularly marginated peripheral cavitary right upper lung mass estimated at 4 cm diameter. Smaller adjacent focal area pleural thickening abutting the intralobar fissure. Emphysematous change, bilateral lower lung partial consolidation most prominent in the left lower lobe. Pleural space: Very small pleural effusions. Heart: No cardiomegaly, minimal right ventricular dilatation.. No pericardial effusion. Lymph nodes: No significant adenopathy. Liver: Multiple hepatic masses re-identified. Bones/joints: No acute findings. Old left rib fractures. Soft tissues: Unremarkable. CT/CT angio chest PE protcl [id number] IMPRESSION: Bilateral pulmonary emboli, possibly subacute. No saddle embolism. Minimal right ventricular dilatation. Heterogeneous and probably necrotic right upper lung mass consistent with neoplasm. Left lower lung consolidation consistent with atelectasis or pneumonia, minimal right lower lung atelectasis. Hepatic metastasis. Radiation Dose CTDIVOL = (mGy): DLP = 571.79 (mGy-cm)
[2020-02-06] MEDS: metroNIDAZOLE 500 MG Tablet PO (22:02)
[2020-02-07] VITALS (12 sets, daily range): BP systolic 118–172; BP diastolic 60–82; PULSE 66–82; RESP 16–20; TEMP 36.3–36.8; O2SAT 92–97
[2020-02-07] MEDS: levoFLOXacin 750 mg Tablet PO (06:09)
[2020-02-07] MEDS: sennosides-docusate Tablet 1 TAB PO (08:16)
[2020-02-07] MEDS: metroNIDAZOLE 500 MG Tablet PO (08:16)
[2020-02-07] MEDS: morphine 4 mg/mL SDV 1 mL 2 MG IVP ×2 (08:16→13:24)
[2020-02-07] MEDS: OLANZapine 5 mg TABLET PO (08:16)
[2020-02-07] MEDS: ipratropium-albuterol 3 mL Neb INHALATION (08:27)
--- NOTE | 2020-02-07 11:16 | PM.DCS ---
Discharge Providers Date of Admission: 02/05/20 06:22 Date of Discharge: February 07, 2020 Attending Provider at Admission: Gray Han MD Attending Provider at Discharge: Joao Cline MD Primary Care Provider: Joao Cline MD Diagnoses at Discharge Discharge Diagnosis (1) Liver metastases: Status: Acute (2) Pulmonary embolism: Status: Acute (3) Acute cholecystitis: Status: Acute (4) Right acetabular fracture: Status: Acute Qualifiers: Encounter type: initial encounter Fracture alignment: nondisplaced Fracture type: closed Sublocation of acetabulum: unspecified portion of acetabulum Qualified Code(s): S32.401A - Unspecified fracture of right acetabulum, initial encounter for closed fracture (5) Urinary incontinence: Status: Acute (6) Shuffling gait: Status: Acute (7) Pulmonary contusion: Status: Acute (8) Aspiration pneumonia: Status: Acute (9) Transaminitis: Status: Acute Reason for Visit Reason for Visit: FALL Hospital Course Discharge Summary: Patient was mid to the hospital after being found down in his garage after falling that night prior. He was found to have a rib fracture and a right hip fracture. After further evaluation he was found to have small subacute pulmonary embolisms and metastatic lesions in the liver. After finding out that he had cancer patient's family opted not to proceed with any further invasive treatments. His pain was well controlled. They opted to bring him home without surgery. They did not want any further testing done on the cancer. He has significantly advanced dementia and they opted to just pursue comfort care at this point. I feel like this was reasonable. He will be discharged home today with comfort care measures and hospice care. Spoke with [id number] and with his in regards to this and everybody seems to be in agreement. Physical Exam Urinary Catheter Management^: Min: Cath Placed During This Visit: yes Reason for Continuing Indwelling Catheter: Required Immobilization for Trauma or Surgery or Anesthesia Urinary Catheter Date of Insertion: 02/05/20 Urinary Catheter Time of Insertion: 08:51 Discharge Data Data Completed and Pending: Completed Studies During Hospitalization Category Date Time Status CT abdomen pelvis w con* [id number] Stat Cat Scan 02/05/20 14:[address] angio chest PE protcl [id number] Rout ine Cat Scan 02/06/20 16:[address] cervical spin wo con* 26097 Urge nt Cat Scan 02/05/20 04:[address] head wo con* 7 0450 Urgent Cat Scan 02/05/20 04:[address] pelvis wo con [id number] Urgent Cat Scan 02/05/20 04:52 Completed XR chest 1V césar ble [id number] Urgent Exams 02/05/20 04:11 Completed XR femur RT min 2 V* [id number] Stat Exams 02/05/20 04:11 Completed XR pelvis min 3V 35264 Routine Exams 02/05/20 07:43 Completed US liver 84621 Ro utine Ultrasound 02/05/20 09:07 Completed Vitals: Last Vital Signs Temp 97.7 F 02/07/20 08:00 Pulse 74 02/07/20 08:33 Resp 18 02/07/20 08:33 BP 172/82 02/07/20 08:00 Pulse Ox 95 02/07/20 08:33 Discharge Plan Discharge Patient Disposition: Hospice - Home Condition: Stable Prescriptions: New morphine 10 mg/5 mL solution 5 mg BUCCAL Q3H PRN (Reason: pain) Qty: 500 RF: 0 Lorazepam Intensol 2 mg/mL concentrate 1 mg PO Q6H PRN (Reason: anxiety) Qty: 30 RF: 0 levofloxacin 750 mg Tablet 750 mg PO DAILY@0600 Qty: 5 RF: 0 Continued mirtazapine 15 mg tablet 15 mg PO BEDTIME RF: 0 Discontinued atorvastatin 40 mg tablet 40 mg PO DAILY RF: 0 donepezil 10 mg tablet 10 mg PO DAILY RF: 0 memantine 10 mg tablet 10 mg PO DAILY RF: 0 Discharge Orders: Discharge Order (Routine); Ordered 02/07/20 Ordered By: Joao Cline Referrals: [facility] [place] Home Care ([facility]) [Outside] Discharge Diet: Usual diet Discharge Activity: Bedrest Activity Restrictions/Additional Instructions: Discharge home with hospice -Roxanol and Ativan Intensol and mirtazapine for medications. Stop all other medications. -Arrange for hospital bed and wheelchair per hospice. -Call if increasing pain or any concerns by family. -Follow-up with Dr. Cline only if needed. Discharge Attestations Time Spent in Discharge Care*: greater than 30 min Quality Metrics Clinical Quality Measures During this hospital stay, did patient experience: None Coding Level of Care Code Acute Delivery Supervisor for g Fwd Diagnoses Liver metastases C78.7 Pulmonary embolism I26.99 Acute cholecystitis K81.0 Right acetabular fracture S32.401A Encounter type: initial encounter Fracture alignment: nondisplaced Fracture type: closed Sublocation of acetabulum: unspecified portion of acetabulum Urinary incontinence R32 Shuffling gait R26.89 Pulmonary contusion S27.329A Aspiration pneumonia J69.0 Transaminitis R74.0
--- NOTE | 2020-02-07 16:09 | PC.NURSE ---
Pt discharged at approximately 15:45 via EMS. Pt is transitioning to home with hospice care. IV removed by charge nurse. Min catheter left in place as a comfort measure; hospice nurse to address whether to continue or discontinue. Paperwork given to EMS; verbal report given and all questions answered. Pt had no complaints at time of discharge and showed no s/s distress.
== END 2020-02-07 15:45 | disposition hospice, home (50) | DRG 963 ==
LOC: ER 03:59 → MEDSURG 06:32
PROVIDERS: Emergency Medicine; Family Medicine; Admitting Provider Internal Medicine; PCP Family Medicine; Visit Provider Family Medicine
DX: S32.401A Unspecified fracture of right acetabulum, initial encounter for closed fracture (principal); J69.0 Pneumonitis due to inhalation of food and vomit; S27.329A Contusion of lung, unspecified, initial encounter; I26.99 Other pulmonary embolism without acute cor pulmonale; S22.39XA Fracture of one rib, unspecified side, initial encounter for closed fracture; K81.0 Acute cholecystitis; C78.7 Secondary malignant neoplasm of liver and intrahepatic bile duct; W19.XXXA Unspecified fall, initial encounter; Y92.008 Other place in unspecified non-institutional (private) residence as the place of occurrence of the external cause; N40.1 Benign prostatic hyperplasia with lower urinary tract symptoms; N39.498 Other specified urinary incontinence; F03.90 Unspecified dementia, unspecified severity, without behavioral disturbance, psychotic disturbance, mood disturbance, and anxiety
CPT/HCPCS: 12345; 36415; 51702; 70450; 71045; 71275; 72125; 72190; 72192; 73552; 74177; 76705; 80048; 80053; 80074; 81001; 82247; 82248; 82550; 82607; 82977; 83690; 83880; 84145; 84443; 84484; 85025; 86140; 86403; 87449; 93005; 94640; 96372; 96375; 97110; 97162; 97530; 99281; J0456; J0696; J0743; J1630; J1650; J2270; J3010; J7030; J7050; Q9967